=== PATIENT | female | born 1955 | race Caucasian/White ===

== ENCOUNTER 2019-02-03 14:53 | Emergency (ER) | payer OTHER ==
[2019-02-03] MEDS ORDERED: Acetaminophen/HYDROcodone 325-10 MG Tab PO ONE (16:01)
--- NOTE | 2019-02-03 16:28 | EDM.PDOC ---
ED HPI GENERAL MEDICAL PROBLEM - General Chief Complaint: Upper Extremity Injury/Pain Stated Complaint: AMBULANCE Time Seen by Provider: 02/03/19 15:15 - History of Present Illness INITIAL COMMENTS - FREE TEXT/NARRATIVE: Brought in by EMS; pt was walking and missed curb falling and landed on L) shoulder. Left shoulder pain. denies hitting head or LOC. Hx CABG, osteoporosis , hypercholesteremia. 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: Musculoskeletal History: Reports: Fracture, Other (See Below) Other Musculoskeletal History: bilateral wrist, patella - Past Surgical History Cardiovascular Surgical History: Reports: Coronary Artery Bypass Female Surgical History: Reports: Hysterectomy Musculoskeletal Surgical History: Reports: Arthroscopic Knee Social & Family History - Family History Family Medical History: Noncontributory - Tobacco Use Smoking Status *Q: Never Smoker - Caffeine Use Caffeine Use: Reports: Tea - Recreational Drug Use Recreational Drug Use: No Review of Systems - Review of Systems Review Of Systems: ROS reveals no pertinent complaints other than HPI. ED EXAM, GENERAL - Physical Exam Exam: See Below General Appearance: Alert, WD/WN, No Apparent Distress Eye Exam: Bilateral Eye: PERRL Neck: Normal Inspection, Supple, Non-Tender Respiratory/Chest: No Respiratory Distress, Lungs Clear, Normal Breath Sounds Cardiovascular: Normal Peripheral Pulses, Regular Rate, Rhythm, No Edema Peripheral Pulses: 3+: Radial (L), Radial (R) GI/Abdominal: Normal Bowel Sounds, Soft, Non-Tender Back Exam: Normal Inspection, Full Range of Motion, Other (no neck pain on palpation) Extremities: Normal Inspection, Arm Pain, Other (Left proximal humeral pain and shoulder pain with minimal edema; no apparent deformity) Skin Exam: Warm, Dry, Intact, Normal Color Course - Vital Signs Last Recorded V/S: Last Vital Signs Temp 35.9 C 02/03/19 15:10 Pulse 84 02/03/19 15:10 Resp 16 02/03/19 15:10 BP 174/76 H 02/03/19 15:10 Pulse Ox 95 02/03/19 15:10 - Orders/Labs/Meds Meds: Medications Discontinued Medications Generic Name Dose Route Start Last Admin Trade Name Vimal PRN Reason Stop Dose Admin Hydrocodone Bitart/Acetaminophen 1 tab 02/03/19 16:01 02/03/19 16:11 [place] 325-10 Mg PO 02/03/19 16:02 1 tab ONETIME ONE Administration - Radiology Interpretation Free Text/Narrative:: Impacted left proximal humeral fracture without malalignment. Departure - Departure Time of Disposition: 16:27 Disposition: Home, Self-Care 01 Condition: Fair Clinical Impression: Fracture of humerus Qualifiers: Encounter type: initial encounter Humerus Location: proximal Fracture type: closed Fracture alignment: nondisplaced Laterality: left - Discharge Information *PRESCRIPTION DRUG MONITORING PROGRAM REVIEWED*: Yes *COPY OF PRESCRIPTION DRUG MONITORING REPORT IN PATIENT SHAYY: No Instructions: Humerus Fracture Treated With Immobilization, [id number] Forms: ED Department Discharge Additional Instructions: Ice 20 min on 20 min off left shoulder. Use sling. Consulted with orthopedics Dr Choe whom said to be seen at the [facility]; since you have an appointment on the you will stay with that slot but have to call to confirm on Tuesday. [place] for pain; may also use ibuprofen. Please see your primary care for any additional refills on pain meds.
== END 2019-02-03 16:46 | disposition home or self-care (01) ==
LOC: DL.ED 14:53
DX: S42.202A Unspecified fracture of upper end of left humerus, initial encounter for closed fracture (principal); Z79.82 Long term (current) use of aspirin; Z79.899 Other long term (current) drug therapy; Z91.09 Other allergy status, other than to drugs and biological substances; W19.XXXA Unspecified fall, initial encounter
CPT/HCPCS: 73030; 99283; A9270